=== PATIENT | male | born 1975 | race Two or more races ===

== ENCOUNTER 2020-01-12 18:07 | Emergency (ER) | payer MEDICAID ==
[~2020-01-12] VITALS: Ht 172.7 cm; Wt 78.0 kg
[2020-01-12] MEDS ORDERED: HYDROCODONE/ACETAMINOPHEN 5/325MG TABLET PO ONE (18:45)
[2020-01-12] MEDS ORDERED: KETOROLAC 30MG/ML VIAL IM ONE (19:45)
[2020-01-12] MEDS ORDERED: MORPHINE SULFATE 4 MG/ML CPJ (NOT FOR IM USE) IV STA (20:40)
[2020-01-12] MEDS ORDERED: ONDANSETRON HCL 4MG/2ML INJ IV STA (20:40)
[2020-01-12] MEDS ORDERED: SODIUM CHLORIDE 0.9% 1,000 ML IV ONE (20:40)
[2020-01-12 21:15] LABS: BASOPHILS % 0.3 % (0.0-2.0); EOSINOPHILS % 0.4 % (0.0-5.0); HEMATOCRIT. 45.3 % (42.0-52.0); HEMOGLOBIN. 15.7 g/dL (14.0-18.0); LYMPHOCYTES % 8.4 % (20.0-50.0); MEAN CORPUSCULAR HEMOGLOBIN 31.9 pg (28.0-32.0); MEAN CORPUSCULAR VOLUME 91.8 fL (80.0-94.0); MEAN PLATELET VOLUME 8.6 fl (7.4-10.4); MONOCYTES % 4.7 % (2.0-8.0); NEUTROPHILS % 86.2 % (40.0-76.0); PLATELET 259 x1000/uL (130-400); RED BLOOD CELL COUNT 4.94 mill/uL (4.7-6.1); RED CELL DISTRIBUTION WIDTH 13.1 % (11.6-14.6)
[2020-01-12 21:20] LABS: CHLORIDE 103 mEq/L (98-107)
[2020-01-12 21:57] VITALS: BP 129/91
== END 2020-01-12 22:22 | disposition short-term general hospital (02) ==
LOC: ER 18:07
DX: S50.02XA Contusion of left elbow, initial encounter (principal); M25.552 Pain in left hip; V29.9XXA Motorcycle rider (driver) (passenger) injured in unspecified traffic accident, initial encounter; Y93.89 Activity, other specified; Y92.89 Other specified places as the place of occurrence of the external cause; Y99.8 Other external cause status
CPT/HCPCS: 36415; 71045; 72192; 73080; 73502; 80053; 84484; 85025; 85610; 86850; 86900; 86901; 96372; 96374; 96375; 99285; J1885; J2270; J2405; J7030